=== PATIENT | male | born 1995 | race Caucasian/White ===

== ENCOUNTER 2020-10-21 02:30 | Emergency (ER) | payer MEDICAID ==
[2020-10-21] MEDS ORDERED: Lidocaine 1% with EPINEPHrine 1:100,000 20 ML MDV ONE (02:45)
--- NOTE | 2020-10-21 03:22 | EDM.PDOC ---
ED HPI GENERAL MEDICAL PROBLEM - General Chief Complaint: ENT Problem Stated Complaint: MOUTH PROBLEM Time Seen by Provider: 10/21/20 03:20 - History of Present Illness INITIAL COMMENTS - FREE TEXT/NARRATIVE: HISTORY AND PHYSICAL: History of present illness: This is a 25-year-old gentleman who presents ER today secondary to bleeding from a cyst at the roof of his mouth on his hard palate. Patient reports that he has had a small cyst to that area for quite some time. Patient reports that he has not seen an oral surgeon for it as of yet. Patient reports that over the last 24 hours got much bigger and started to his blood. reports he has had multiple episodes in the past where the cyst has gotten bigger but usually it drains purulent material and then stopped. This is a first time where it had blood coming from it. Patient denies any other symptomatology. Patient has any recent fevers, shakes, chills, nausea, vomiting, diarrhea, dysuria, frequency, urgency. Patient reports no history of easy bruising or bleeding in the past. Review of systems: As per history of present illness and below otherwise all systems reviewed and negative. Past medical history: As per history of present illness and as reviewed below otherwise noncontributory. Surgical history: As per history of present illness and as reviewed below otherwise noncontributory. Social history: No reported history of drug or alcohol abuse. Family history: As per history of present illness and as reviewed below otherwise noncontributory. Physical exam: This patient was seen and evaluated during the 2019 SARS-CoV-2 novel coronavirus pandemic period. Community viral transmission is ongoing at time of this encounter and the emergency department is operating under pandemic response procedures. Constitutional: Patient is oriented to person, place, and time. Appears well- developed and well-nourished. No distress. HEENT: Moist mucous membranes Head: Normocephalic and atraumatic Eyes: Right eye exhibits no discharge. Left eye exhibits no discharge. No scleral icterus Neck: Normal range of motion. No tracheal deviation present. Cardiovascular: Normal rate and regular rhythm. Pulmonary: Effort normal, no respiratory distress. Abdominal: No distention Musculoskeletal: Normal range of motion Neurologic: Alert and oriented to person, place and time. Skin: [place], warm and dry. Psychiatric: Normal mood and affect. Behavior is normal. Judgment and thought content normal. Nursing note and vital signs have been reviewed Patient's ER physical exam is significant for a cyst at the roof of his upper soft palate with bleeding noted at the edge of the cyst. The cyst edge is at or near his right upper incisor it appears that the bleeding is coming through the dental socket at that area. Cyst is very soft and palpable and consistent with likely blood-filled sac. Whenever pressure is applied to the cyst, blood is expressed out of the opening of the tooth. Unable to apply enough pressure to stop the bleeding. In order to remove the hematoma, small incision was made and the hematoma was evacuated and pressure was applied using a teabag and gauze with patient's tongue applying pressure for about 15-20 minutes. Diagnostics: [] Therapeutics: [] Assessment and plan: Bleeding from cyst of soft palate. I have discussed with the patient and his significant other that he will need to follow-up with oral surgery in order to further evaluate him to make sure that he has no cancers process resulting in the cyst. We will evacuate hematoma and attempt to apply pressure to stop the bleeding. 2 cc of lidocaine with epinephrine was utilized to anesthetize the soft palate area. Utilizing an 11 blade scalpel a small incision was made and utilizing suction the hematoma was evacuated from the cyst cavity. A small excision of the tissue was removed in order to allow for drainage of blood so that it does not reaccumulate and create another hematoma. Utilizing a teabag and a 4 x 4, pressure was applied with the assistance of the patient's tongue. Teabag soaked with water with epi applied with a 4 x 4 underneath and pressure applied for approximately 30 minutes to area. Teabag removed and no active bleeding at this time. A second teabag has been placed and patient be discharged home with it. Patient be given a prescription for Keflex 500 mg twice a day for prophylactic antibiotics. Patient has been instructed to follow-up with oral surgery for further evaluation. Reassessment at the time of disposition demonstrates that the patient is in no acute distress. The patient has remained stable throughout the entire ED visit and is without objective evidence for acute process requiring urgent intervention or hospitalization. The patient is stable for discharge, counseling is provided as documented above, discussed symptomatic treatment and specific conditions for return. I have spoken with the patient/caregiver and discussed todays findings, in addition to providing specific details for the plan of care. Questions are answered and there is agreement with the plan. Definitive disposition and diagnosis as appropriate pending reevaluation and review of above. - Related Data Allergies Allergy/AdvReac Type Severity Reaction Status Date / Time No Known Allergies Allergy Verified 10/21/20 03:14 Home Meds: Home Meds cephALEXin [Keflex] 500 mg PO BID #10 cap 10/21/20 [Rx] ED ROS GENERAL - Review of Systems Review Of Systems: See Below ED EXAM, GENERAL - Physical Exam Exam: See Below Course - Vital Signs Last Recorded V/S: Last Vital Signs Temp 97.0 F 10/21/20 02:30 Pulse 76 10/21/20 03:50 Resp 18 10/21/20 03:50 BP 136/78 10/21/20 03:50 Pulse Ox 96 10/21/20 03:50 - Orders/Labs/Meds Meds: Medications Discontinued Medications Generic Name Dose Route Start Last Admin Trade Name Jack PRN Reason Stop Dose Admin Lidocaine/Epinephrine Confirm 10/21/20 02:45 10/21/20 03:50 Lidocaine 1% With Epinephrine 1:100,000 20 Ml Mdv Administered 10/21/20 02:46 Not Given Dose 20 ml .ROUTE .STK-MED ONE Lidocaine/Epinephrine 20 ml 10/21/20 03:39 10/21/20 03:50 Lidocaine 1% With Epinephrine 1:100,000 20 Ml Mdv INJECT 10/21/20 03:40 20 ml ONETIME ONE Administration Departure - Departure Time of Disposition: 03:52 Disposition: Home, Self-Care 01 Condition: Good Clinical Impression: Soft palate injury - Discharge Information Prescriptions: cephALEXin [Keflex] 500 mg PO BID #10 cap Instructions: Mouth Laceration, [id number], Wound Care, Adult Referrals: PCP,None [Primary Care Provider] - Forms: ED Department Discharge Additional Instructions: Your seen and evaluated in the ER today secondary to a cyst appearing lesion at the roof of your mouth that was filled with blood and hematoma. An incision was made and the hematoma was evacuated to assist with applying pressure to the area to stop the bleeding. Please continue to apply pressure to that area while awake. Please make sure you make an appointment to see an oral surgeon for further evaluation of that lesion. You will be given a prescription for Keflex 500 mg twice a day x5 days to help prevent any infection since this is a injury to the mouth. The following information is given to patients seen in the emergency department who are being discharged to home. This information is to outline your options fo r follow-up care. We provide all patients seen in our emergency department with a follow-up referral. The need for follow-up, as well as the timing and circumstances, are variable depending upon the specifics of your emergency department visit. If you don't have a primary care physician on staff, we will provide you with a referral. We always advise you to contact your personal physician following an emergency department visit to inform them of the circumstance of the visit and for follow-up with them and/or the need for any referrals to a consulting specialist. The emergency department will also refer you to a specialist when appropriate. This referral assures that you have the opportunity for follow-up care with a specialist. All of these measure are taken in an effort to provide you with optimal care, which includes your follow-up. Under all circumstances we always encourage you to contact your private physician who remains a resource for coordinating your care. When calling for follow-up care, please make the office aware that this follow-up is from your recent emergency room visit. If for any reason you are refused follow-up, please contact the [facility] Emergency Department at and asked to speak to the emergency department charge nurse. [facility] [address] [place] [address] [id number] [address] [address]
[2020-10-21] MEDS ORDERED: Lidocaine 1% with EPINEPHrine 1:100,000 20 ML MDV INJECT ONE (03:39)
== END 2020-10-21 03:59 | disposition home or self-care (01) ==
LOC: MW.ED 02:30
DX: S09.93XA Unspecified injury of face, initial encounter (principal); K13.79 Other lesions of oral mucosa; X58.XXXA Exposure to other specified factors, initial encounter
CPT/HCPCS: 10140; 99282

== ENCOUNTER 2020-12-12 21:41 | Emergency (ER) | payer MEDICAID ==
[2020-12-12] MEDS ORDERED: Lidocaine 2% 5 ML SDV INJECT ONE (22:07)
--- NOTE | 2020-12-12 22:10 | EDM.PDOC ---
ED HPI GENERAL MEDICAL PROBLEM - General Chief Complaint: ENT Problem Stated Complaint: MOUTH SWELLING, POSSIBLE CYST Time Seen by Provider: 12/12/20 22:08 History Limitations: Reports: No Limitations - History of Present Illness INITIAL COMMENTS - FREE TEXT/NARRATIVE: Patient is a 25-year-old male presents today for possible abscess the roof of his mouth. Pain states that he has had a complicated dental history he had a cyst formed the roof of his mouth that had to be removed in the past. Patient scheduled see ENT surgeon next to have the cyst removed again and may be possible bone graft but the cyst is getting bigger in size and causing pain. There has been no drainage patient denies any fever chills difficulty breathing or swallowing. Patient came in today because the cyst is increased in size. Oral/Mouth Pain Score (Numeric/FACES): 2 - Related Data Allergies Allergy/AdvReac Type Severity Reaction Status Date / Time No Known Allergies Allergy Verified 10/21/20 03:14 Home Meds: Home Meds cephALEXin [Keflex] 500 mg PO BID #10 cap 10/21/20 [Rx] Past Medical History - Past Health History Medical/Surgical History: Denies Medical/Surgical History - Infectious Disease History Infectious Disease History: Reports: Chicken Pox Social & Family History - Family History Family Medical History: No Pertinent Family History - Tobacco Use Tobacco Use Status *Q: Never Tobacco User Second Hand Smoke Exposure: No - Recreational Drug Use Recreational Drug Use: No ED ROS ENT - Review of Systems Review Of Systems: See Below Constitutional: Reports: No Symptoms HEENT: Reports: Other (mouth top swelling) Respiratory: Reports: No Symptoms Endocrine: Reports: No Symptoms GI/Abdominal: Reports: No Symptoms : Reports: No Symptoms Musculoskeletal: Reports: No Symptoms Skin: Reports: No Symptoms Neurological: Reports: No Symptoms Psychiatric: Reports: No Symptoms Hematologic/Lymphatic: Reports: No Symptoms Immunologic: Reports: No Symptoms ED EXAM, ENT - Physical Exam Exam: See Below Exam Limited By: No Limitations General Appearance: Alert, WD/WN, No Apparent Distress Mouth/Throat: Other (large cyst roof mouth ) Head: Atraumatic, Normocephalic Cardiovascular: Normal Peripheral Pulses GI/Abdominal: Normal Bowel Sounds Neurological: Alert, Oriented ED I&D PROCEDURES - I&D Site: roof of mouth Skin prep: Isopropyl Alcohol (Alcohol) Local anesthesia - Lidocaine (Xylocaine): 2% Plain Local Anesthetic Volume: 2cc Area Incised With: 11 Blade Drainage: Purulent Probed to Break Up Loculations: Yes Packed With: None Sterile Dressing: Other Complications: No Course - Vital Signs Last Recorded V/S: Last Vital Signs Temp 96.5 F L 12/12/20 21:55 Pulse 55 L 12/12/20 21:55 Resp 16 12/12/20 21:55 BP 141/93 H 12/12/20 21:55 Pulse Ox 98 12/12/20 21:55 - Orders/Labs/Meds Meds: Medications Discontinued Medications Generic Name Dose Route Start Last Admin Trade Name Jack PRN Reason Stop Dose Admin Lidocaine 5 ml 12/12/20 22:07 Lidocaine 2% 5 Ml Sdv INJECT 12/12/20 22:08 ONETIME ONE Lidocaine HCl Confirm 12/12/20 22:46 Lidocaine 1% 5 Ml Sdv Administered 12/12/20 22:47 Dose 5 ml .ROUTE .STK-MED ONE - Re-Assessments/Exams Free Text/Narrative Re-Assessment/Exam: 12/12/20 23:24 I&D performed and a good amount of pus came out patient agrees with pain. Patient will be sent home antibiotics will still follow-up with ENT next week. Departure - Departure Time of Disposition: 23:24 Disposition: Home, Self-Care 01 Condition: Good Clinical Impression: Abscess of mouth - Discharge Information *PRESCRIPTION DRUG MONITORING PROGRAM REVIEWED*: Not Applicable *COPY OF PRESCRIPTION DRUG MONITORING REPORT IN PATIENT EMILIA: Not Applicable Instructions: Dental Abscess, [id number] Referrals: PCP,None [Primary Care Provider] - Forms: ED Department Discharge Additional Instructions: The following information is given to patients seen in the emergency department who are being discharged to home. This information is to outline your options for follow-up care. We provide all patients seen in our emergency department with a follow-up referral. The need for follow-up, as well as the timing and circumstances, are variable depending upon the specifics of your emergency department visit. If you don't have a primary care physician on staff, we will provide you with a referral. We always advise you to contact your personal physician following an emergency department visit to inform them of the circumstance of the visit and for follow-up with them and/or the need for any referrals to a consulting specialist. The emergency department will also refer you to a specialist when appropriate. This referral assures that you have the opportunity for follow-up care with a specialist. All of these measure are taken in an effort to provide you with optimal care, which includes your follow-up. Under all circumstances we always encourage you to contact your private physician who remains a resource for coordinating your care. When calling for follow-up care, please make the office aware that this follow-up is from your recent emergency room visit. If for any reason you are refused follow-up, please contact the [facility] Emergency Department at and asked to speak to the emergency department charge nurse. Please follow up with your primary care physician. If you do not have a primary care physician, see below: [facility] [address] [place] [id number] [facility] [address] [place] [address] You were seen today for an abscess to the roof of your mouth. We were able to place a small hole and get a good amount of pus out. We will see on antibiotics and we still recommend you follow-up with the surgeon next for the procedure. If you have any other increased symptoms please return to the ED. Sepsis Event Note (ED) - Evaluation Sepsis Screening Result: No Definite Risk - Focused Exam Vital Signs: Vital Signs Temp Pulse Resp BP Pulse Ox 12/12/20 21:55 96.5 F L 55 L 16 141/93 H 98 - Assessment/Plan Plan: Patient is a 25-year-old male who presents today for pain to the roof of his mouth. Patient has a large cyst possible abscess of the roof his mouth. Patient scheduled see ENT surgeon for procedure in the area as well. Due to the size and the pressure we will stick a needle in it to try to expel some of the pus and pressure. And also place patient antibiotics.
[2020-12-12] MEDS ORDERED: Clindamycin HCl 150 MG Cap PO ONE (23:35)
== END 2020-12-13 | disposition home or self-care (01) ==
LOC: MW.ED 21:41
DX: K12.2 Cellulitis and abscess of mouth (principal)
CPT/HCPCS: 42000; 99282; A9270; 10060

== ENCOUNTER 2022-01-09 22:40 | Emergency (ER) | payer BC ==
[2022-01-10] MEDS ORDERED: Ondansetron 4 MG/2 ML SDV IVPUSH ONE (00:32)
[2022-01-10] MEDS ORDERED: Sodium Chloride 0.9% 2.5 ML Syringe FLUSH PRN (00:32)
[2022-01-10] MEDS ORDERED: Sodium Chloride 0.9% 1,000 ML IV ONE ×3 (00:32→01:49)
[2022-01-10] MEDS ORDERED: Sodium Chloride 0.9% 10 ML Syringe FLUSH PRN (00:32)
[2022-01-10 01:37] LABS: CARBON DIOXIDE,CO2 23.4 mmol/L (21.0-32.0); POTASSIUM,K 5.1 mmol/L (3.5-5.1)
[2022-01-10 03:57] LABS: CARBON DIOXIDE,CO2 21.5 mmol/L (21.0-32.0); POTASSIUM,K 5.3 mmol/L (3.5-5.1)
== END 2022-01-10 04:45 | disposition left against medical advice (07) ==
LOC: MW.ED 22:40
DX: T67.5XXA Heat exhaustion, unspecified, initial encounter (principal); E87.5 Hyperkalemia; E86.0 Dehydration; N17.9 Acute kidney failure, unspecified; Z20.822 Contact with and (suspected) exposure to COVID-19
CPT/HCPCS: 36415; 80053; 81001; 82550; 83690; 85025; 87635; 93005; 96361; 96374; 99284; J2405; J3490; J7030; U0002